=== PATIENT | male | born 1980 | race African-American/Black ===

== ENCOUNTER 2018-11-17 09:42 | Emergency (ER) | payer OTHER ==
[~2018-11-17] VITALS: Ht 185.4 cm; Wt 86.2 kg
[2018-11-17 10:02] VITALS: BP 145/102
== END 2018-11-17 10:57 | disposition home or self-care (01) ==
LOC: ER 09:42
DX: S61.511A Laceration without foreign body of right wrist, initial encounter (principal); W26.8XXA Contact with other sharp object(s), not elsewhere classified, initial encounter; Y92.89 Other specified places as the place of occurrence of the external cause; Y93.89 Activity, other specified; Y99.8 Other external cause status